=== PATIENT | female | born 1980 | race Caucasian/White ===

== ENCOUNTER 2017-12-09 19:06 | Emergency (ER) | payer MEDICAID ==
[2017-12-09 19:13] VITALS: BP 154/101
[2017-12-09] MEDS ORDERED: DEXAMETHASONE SOD PHOS INJ 10 MG/1 ML VIAL IM ONE (20:59)
[2017-12-09] MEDS ORDERED: DIPHENHYDRAMINE HCL 50 MG/ML VIAL IM ONE (20:59)
[2017-12-09] MEDS ORDERED: FAMOTIDINE 20 MG TABLET PO ONE (20:59)
--- NOTE | 2017-12-09 20:59 | ER Document Report ---
HPI - HPI Pain Level: 3 Notes: Patient is a 37-year-old female with a history of chronic migraines who presents to the ED complaining of left upper lip swelling about 3 hours ago while she was at work without known cause. She states that she has had some ' tingling' to the lip. Patient states that she started to have 1 of her typical headaches so she took a BC powder and about 20 minutes after that noticed the lip started to swell. Patient states that her headache has since improved and the swelling has improved as well, but she wanted to get checked out as precautionary. Patient states that she does have a history of hypertension as well, but has not been taking her medications over the last 6 months. She is on a combination medication with hydrochlorthiazide, but cannot remember what the other medicine is. Again, she has not taken this medicine in 6 months. She denies any drug allergies. Denies any new foods, travel, or other medicines. Patient states that she is otherwise eating and drinking without any difficulties. She is urinating normally and having normal bowel movements. Denies any fever, head injury, neck pain, drooling, hoarseness, swelling of tongue/throat, URI, sore throat, chest pain, palpitations, syncope, cough, shortness of breath, wheeze, dyspnea, abdominal pain, nausea/vomiting/diarrhea, urinary retention, dysuria, hematuria, muscle paralysis/weakness, or rash. - ROS Systems Reviewed and Negative: Yes All other systems reviewed and negative Past Medical History - Social History Smoking Status: Unknown if Ever Smoked Family History: Reviewed & Not Pertinent Vertical Provider Document - CONSTITUTIONAL Agree With Documented VS: Yes Notes: PHYSICAL EXAMINATION: GENERAL: Well-appearing, well-nourished and in no acute distress. A&Ox4. Answers questions appropriately. HEAD: Atraumatic, normocephalic. Non-tender. EYES: Pupils equal round and reactive to light, extraocular movements intact, sclera anicteric, conjunctiva are normal. No nystagmus. vis kaufman intact. ENT: EAC clear b/l. TM's intact b/l without erythema, fluid, or perforation. Nares patent and without discharge. oropharynx clear without exudates. No tonsilar hypertrophy or erythema. Moist mucous membranes. No sinus tenderness. Left upper lip has minimal swelling noted when compared to the the rt side and lower lip. No angioedema of the tongue/throat. no airway compromise. Non-tender to palp. No erythema or lesion/ulceration noted. NECK: Normal range of motion, supple without lymphadenopathy. No rigidity/ meningismus. No midline tenderness. LUNGS: Breath sounds clear to auscultation bilaterally and equal. No wheezes rales or rhonchi. HEART: Regular rate and rhythm without murmurs, rubs, gallops. ABDOMEN: Soft, nontender, nondistended abdomen. No guarding, no rebound. Normal bowel sounds present. No CVA tenderness bilaterally. Musculoskeletal: Ext b/l: FROM to passive/active. Strength 5+/5. No deficits noted. No bony tenderness of extremities. Extremities: No cyanosis, clubbing, or edema b/l. Peripheral pulses 2+. Capillary refill less than 2 seconds. NEUROLOGICAL: NIH 0. GCS 15. Cranial nerves grossly intact. Normal speech, normal gait. Normal sensory, motor exams. Reflexes 2+ b/l. CAIO's negative. Pronator drift negative. Heel/ybarra, finger/nose wnl. PSYCH: Normal mood, normal affect. SKIN: Warm, Dry, normal turgor, no rashes or lesions noted. - INFECTION CONTROL TRAVEL OUTSIDE OF THE [place] IN LAST 30 DAYS: No Course - Re-evaluation Re-evalutation: 12/09/17 22:05 Patient is an afebrile, well-hydrated, 37-year-old female who presents to the ED with a resolved headache and very minimal left upper lip swelling, unspecified. Vitals are acceptable without any significant tachycardia, tachypnea, or hypoxia. PE is otherwise unremarkable for any focal neurological deficits. Patient has had improvements over the last 3 hours since onset without medications. I did, however, give her Decadron, Pepcid, and Benadryl. Patient states that she is feeling better and would like to go home. No labs or imaging warranted at this time based on H&P. Low suspicion for any meningitis, sepsis, peritonsillar/pharyngeal abscess, airway compromise, Anjum' s, severe angioedema, or other emergent systemic condition at this time. Patient is aware this condition can change from initial presentation and she needs to monitor symptoms closely. Conservative measures otherwise for symptoms. Recheck with your PCM in 2-3 days. Return to the ED with any worsening/concerning symptoms otherwise as reviewed in discharge. Patient is in agreement. - Vital Signs Vital signs: Temp Pulse Resp BP Pulse Ox 98.2 F 69 16 154/101 H 100 12/09/17 19:11 12/09/17 19:11 12/09/17 19:11 12/09/17 19:11 12/09/17 19:11 Discharge - Discharge Clinical Impression: Swollen upper lip Headache Qualifiers: Headache type: unspecified Headache chronicity pattern: acute headache Intractability: not intractable Qualified Code(s): R51 - Headache Condition: Stable Disposition: HOME, SELF-CARE Instructions: Headache ([facility]) Additional Instructions: Rest, Ice Tylenol/ibuprofen as needed Healthy diet Monitor for any acute changes in her symptoms Monitor blood pressure closely and check with your primary care doctor before starting due to your upper lip swelling. F/u with your PCP in 2-3 days for a recheck Consider consult(s) with Orthopedics/physical therapy for ongoing/worsening symptoms Return to the ED with any worsening symptoms and/or development of fever, headache, changes in behavior/mentation/vision/speech, drooling, hoarseness, trouble swallowing, stridor, chest pain, palpitations, syncope, shortness of breath, trouble breathing, abdominal pain, n/v/d, blood in stool/urine, loss of control of bowel/bladder, urinary retention, muscle weakness/paralysis, saddle anesthesia, numbness/tingling, or other worsening symptoms that are concerning to you. Forms: Elevated Blood Pressure Referrals: [facility] [Provider Group] - Follow up as needed [facility] [Provider Group] - Follow up as needed
== END 2017-12-09 22:10 | disposition home or self-care (01) ==
LOC: ER 19:06
DX: R51 Headache (principal); R22.0 Localized swelling, mass and lump, head
CPT/HCPCS: 99283; 96372; J3490; J1200; J1100

== ENCOUNTER 2018-04-29 08:48 | Emergency (ER) | payer MEDICAID ==
--- NOTE | 2018-04-29 09:48 | RADIOLOGY REPORT (SQ) ---
EXAM DESCRIPTION: CHEST SINGLE VIEW COMPLETED DATE/TIME: 04/29/2018 9:40 am REASON FOR STUDY: chest pain COMPARISON: None. EXAM PARAMETERS: NUMBER OF VIEWS: One view. TECHNIQUE: Single frontal radiographic view of the chest acquired. RADIATION DOSE: NA LIMITATIONS: None. FINDINGS: LUNGS AND PLEURA: No opacities, masses or pneumothorax. No pleural effusion. MEDIASTINUM AND HILAR STRUCTURES: No masses. Contour normal. HEART AND VASCULAR STRUCTURES: Moderate cardiomegaly BONES: No acute findings. HARDWARE: None in the chest. OTHER: No other significant finding. IMPRESSION: Moderate cardiomegaly. No acute infiltrates TECHNICAL DOCUMENTATION: JOB ID: [id number] [employer]- All Rights Reserved Reading location - IP/workstation name: [email or web address]
--- NOTE | 2018-04-29 10:03 | ER Document Report ---
ED General - General Chief Complaint: Chest Pain Stated Complaint: CHEST PAIN Time Seen by Provider: 04/29/18 09:28 TRAVEL OUTSIDE OF THE [place] IN LAST 30 DAYS: No - HPI Notes: Patient is a 38-year-old female with history of hypertension and diabetes that presents to the emergency department for chief complaint of chest pain. Patient reports of pain over her left chest that began last night. It has been intermittent since onset. She states that when she woke up this morning it was not present but it started to begin while she was getting ready for work. She describes it as a squeezing aching sensation with radiation down her left arm. She does have some dyspnea with exertion and shortness of breath when the pain occurs. She denies any history of cardiac disease. She is never had a stress t est done. There is no family history of DVT/PE. She has not had any recent surgery, travel, immobilizations or estrogen use. She denies any palpitations, lightheadedness, cough, diaphoresis nausea and vomiting. She did take 1 baby aspirin which gave her some relief prior to arrival. Past Medical History: Diabetes, hypertension Past Surgical History: Social History: Denies tobacco and drug use. Occasional alcohol use Family History: Reviewed and noncontributory for presenting illness Allergies: Reviewed, see documented allergy list. REVIEW OF SYSTEMS: CONSTITUTIONAL : No fever No chills No diaphoresis No recent illness EENT: No vision changes No congestion No sore throat CARDIOVASCULAR: chest pain No palpitations RESPIRATORY: shortness of breath No cough difficulty breathing GASTROINTESTINAL: No abdominal pain No nausea No vomiting No diarrhea GENITOURINARY: No dysuria No hematuria No difficulty urinating MUSCULOSKELETAL: No back pain No leg pain No arm pain SKIN: No rashes No lesions LYMPHATIC: No swollen, enlarged glands. NEUROLOGICAL: No lightheadedness No headache No weakness No paresthesias PSYCHIATRIC: No anxiety No depression PHYSICAL EXAMINATION: Vital signs reviewed, nursing noted reviewed. GENERAL: Well-appearing, well-nourished and in no acute distress. HEAD: Atraumatic, normocephalic. EYES: Eyes appear normal, extraocular movements intact, sclera anicteric, conjunctiva are normal. ENT: nares patent, oropharynx clear without exudates. Moist mucous membranes. NECK: Normal range of motion, supple without lymphadenopathy LUNGS: Breath sounds clear to auscultation bilaterally and equal. No wheezes rales or rhonchi. HEART: Regular rate and rhythm without murmurs, +2/4 bilateral radial pulses ABDOMEN: Soft, nontender, normoactive bowel sounds. No rebound, guarding, or rigidity. No masses appreciated. EXTREMITIES: Nontender, good range of motion, no pitting or edema. NEUROLOGICAL: No focal neurological deficits. Moves all extremities spontaneously Motor and sensory grossly intact on exam. PSYCH: Normal mood, normal affect. SKIN: Warm, Dry, normal turgor, no rashes or lesions noted on exposed skin - Related Data Allergies/Adverse Reactions: No Known Allergies Allergy (Unverified 12/09/17 19:07) Past Medical History - Social History Smoking Status: Never Smoker Chew tobacco use (# tins/day): No Frequency of alcohol use: Occasional Drug Abuse: None Family History: Reviewed & Not Pertinent Patient has suicidal ideation: No Patient has homicidal ideation: No - Past Medical History Cardiac Medical History: Reports: Hx Hypertension Renal/ Medical History: Denies: Hx Peritoneal Dialysis GI Medical History: Reports: Hx Gastroesophageal Reflux Disease Past Surgical History: Reports: Hx Section Physical Exam - Vital signs Vitals: Temp Pulse Resp BP Pulse Ox 98.5 F 72 20 144/99 H 97 04/29/18 08:57 04/29/18 08:57 04/29/18 08:57 04/29/18 08:57 04/29/18 08:57 Course - Re-evaluation Re-evalutation: 04/29/18 10:02 Vitals reviewed. Nursing notes reviewed. Patient was given aspirin for her chest pain. Her EKG shows a probable left atrial abnormality and chest x-ray shows cardiomegaly. Neither of these findings are something that she has knowledge of. I have no comparison EKG. Lab work will be ordered to further investigate patient's chest pain complaint. 04/29/18 13:29 Patient has remained stable while in the emergency room. She did have some symptomatic relief of her chest discomfort. Her troponin x2 is negative. She is low risk for major adverse cardiac event given her heart score of 2. Her d-d saurav was elevated however there is no pulmonary embolism on CT. CT of her chest also shows no acute cardiopulmonary process. Patient will be referred to primary care for follow-up. She is stable at time of discharge. She will return for new or worsening symptoms. Laboratory 04/29/18 04/29/18 04/29/18 09:27 09:27 09:27 WBC 12.7 H RBC 4.29 Hgb 12.3 Hct 37.7 MCV 88 MCH 28.8 MCHC 32.8 RDW 13.2 Plt Count 299 Seg Neutrophils % 68.2 Lymphocytes % 23.2 Monocytes % 6.1 Eosinophils % 2.2 Basophils % 0.3 Absolute Neutrophils 8.7 H Absolute Lymphocytes 2.9 Absolute Monocytes 0.8 Absolute Eosinophils 0.3 Absolute Basophils 0.0 D-Dimer 0.94 H Sodium 138.9 Potassium 4.0 Chloride 103 Carbon Dioxide 29 Anion Gap 7 BUN 13 Creatinine 0.83 Est GFR ( Amer) > 60 Est GFR (Non-Af Amer) > 60 Glucose 97 Calcium 9.0 Troponin I NT-Pro-B Natriuret Pep 04/29/18 04/29/18 09:27 12:34 WBC RBC Hgb Hct MCV MCH MCHC RDW Plt Count Seg Neutrophils % Lymphocytes % Monocytes % Eosinophils % Basophils % Absolute Neutrophils Absolute Lymphocytes Absolute Monocytes Absolute Eosinophils Absolute Basophils D-Dimer Sodium Potassium Chloride Carbon Dioxide Anion Gap BUN Creatinine Est GFR ( Amer) Est GFR (Non-Af Amer) Glucose Calcium Troponin I < 0.012 < 0.012 NT-Pro-B Natriuret Pep 31 Chest X-Ray 04/29/18 09:28 IMPRESSION: Moderate cardiomegaly. No acute infiltrates Chest/Abdomen CTA 04/29/18 10:30 IMPRESSION: Negative examination for pulmonary embolism. - Vital Signs Vital signs: Temp Pulse Resp BP Pulse Ox 98.5 F 72 14 151/100 H 97 04/29/18 08:57 04/29/18 08:57 04/29/18 13:01 04/29/18 13:01 04/29/18 13:01 - Laboratory Result Diagrams: 04/29/18 09:27 04/29/18 09:27 Laboratory results interpreted by me: 04/29/18 04/29/18 09:27 09:27 WBC 12.7 H Absolute Neutrophils 8.7 H D-Dimer 0.94 H - EKG Interpretation by Me Additional EKG results interpreted by me: 04/29/18 10:03 Interpreted by myself [id number]: Normal sinus rhythm, rate 75, normal axis, left atrial abnormality, no STEMI Discharge - Discharge Clinical Impression: Cardiomegaly Chest pain Qualifiers: Chest pain type: unspecified Qualified Code(s): R07.9 - Chest pain, unspecified Condition: Stable Disposition: HOME, SELF-CARE Instructions: Chest Pain of Unclear Cause ([facility]) Additional Instructions: Please return to the emergency department if you have any worsening, or concern of your symptoms. Please return to the emergency department if you develop chest pain, difficulty breathing, severe abdominal pain, or ongoing vomiting. Please follow-up with your primary care physician in 2-3 days and any other recommended physicians. If prescribed, take all medications as directed. If you have any questions or concerns do not hesitate to return the emergency department for evaluation. Referrals: [facility] [Provider Group] - Follow up in 3-5 days
[2018-04-29 10:15] LABS: ABSOLUTE EOSINOPHILS # (AUTO) 0.3 10^3/uL (0.0-0.6); ABSOLUTE LYMPHOCYTES (AUTO) 2.9 10^3/uL (0.5-4.7); ABSOLUTE MONOCYTES (AUTO) 0.8 10^3/uL (0.1-1.4); ABSOLUTE NEUT (AUTO) 8.7 10^3/uL (1.7-8.2); ANION GAP 7 (5-19); BASOPHILS % (AUTO) 0.3 % (0-2); BLOOD UREA NITROGEN 13 mg/dL (7-20); CARBON DIOXIDE 29 mmol/L (22-30); CHLORIDE 103 mmol/L (98-107); EOSINOPHILS % (AUTO) 2.2 % (0-6); GLUCOSE 97 mg/dL (75-110); HEMATOCRIT 37.7 % (36.0-47.0); HEMOGLOBIN 12.3 g/dL (12.0-15.5); LYMPHOCYTES % (AUTO) 23.2 % (13-45); MEAN CORPUSCULAR HEMOGLOBIN 28.8 pg (27.0-33.4); MEAN CORPUSCULAR HGB CONC 32.8 g/dL (32.0-36.0); MEAN CORPUSCULAR VOLUME 88 fl (80-97); MONOCYTES % (AUTO) 6.1 % (3-13); PLATELET COUNT 299 10^3/uL (150-450); RED BLOOD COUNT 4.29 10^6/uL (3.72-5.28); RED CELL DISTRIBUTION WIDTH 13.2 % (11.5-14.0); SEGMENTED NEUTROPHILS % (AUTO) 68.2 % (42-78); SODIUM 138.9 mmol/L (137-145); TOTAL CELLS COUNTED % (AUTO) 100 %; WHITE BLOOD COUNT 12.7 10^3/uL (4.0-10.5)
[2018-04-29 10:27] LABS: NT PRO BNP 31 pg/mL (<125)
[2018-04-29 10:28] LABS: TROPONIN I < 0.012 ng/mL
--- NOTE | 2018-04-29 11:14 | RADIOLOGY REPORT (SQ) ---
EXAM DESCRIPTION: CTA CHEST COMPLETED DATE/TIME: 04/29/2018 10:54 am REASON FOR STUDY: PE study COMPARISON: 04/29/2018 TECHNIQUE: CT scan of the chest performed using helical scanning technique with dynamic intravenous contrast injection. Images reviewed with lung, soft tissue and bone windows. Reconstructed coronal and sagittal MPR images reviewed. Additional 3 dimensional post-processing performed to develop Maximal Intensity Projection images (WA P). All images stored on PACS. All CT scanners at this facility use dose modulation, iterative reconstruction, and/or weight based d osing when appropriate to reduce radiation dose to as low as reasonably achievable (ALARA). [facility]: Dose Right [facility]: CareDose [facility]: Dose Right [facility]: Teradose 4D [facility]: [email or web address] CONTRAST TYPE AND DOSE: contrast/concentration: Isovue 350.00 mg/ml; Total Contrast Delivered: 90.0 ml; Total Saline Delivered: 69.0 ml Contrast bolus optimized for the pulmonary arteries. Not diagnostic for the aorta. RENAL FUNCTION: None required. The patient is less than 50 years old. RADIATION DOSE: CT Rad equipment meets quality standard of care and radiation dose reduction techniq ues were employed. CTDIvol: 24.8 - 33.4 mGy. DLP: 1166 mGy-cm. . LIMITATIONS: None. FINDINGS: LUNGS AND PLEURA: No masses, infiltrates, or pneumothorax. Left basilar scarring or atele ctasis. No pleural effusions or pleural calcifications. AORTA AND GREAT VESSELS: No aneurysm. Contrast bolus not optimized for the aorta. HEART: No pericardial effusion. No significant coronary artery calcifications. PULMONARY ARTERIES: No emboli visualized in the main pulmonary arteries or the segmental branches. HILAR AND MEDIASTINAL STRUCTURES: No identified masses or abnormal nodes. HARDWARE: None in the chest. UPPER ABDOMEN: No significant findings. Limited exam. THYROID AND OTHER SOFT TISSUES: No masses. No adenopathy. BONES: No acute or significant finding. 3D MIPS: Confirm above findings. OTHER: No other significant finding. IMPRESSION: Negative examination for pulmonary embolism. COMMENT: Quality ID # [id number]: Final reports with documentation of one or more dose reduction techniques (e.g., Automated exposure control, adjustment of the mA and/or kV according to patient size, use of iterative reconstruction technique) TECHNICAL DOCUMENTATION: JOB ID: [id number] [employer]- All Rights Reserved Reading location - IP/workstation name: [email or web address]
[2018-04-29 13:05] VITALS: BP 151/100
--- NOTE | 2018-04-29 21:12 | EKG REPORT ---
SEVERITY:- ABNORMAL ECG - SINUS RHYTHM PROBABLE LEFT ATRIAL ABNORMALITY LEFT VENTRICULAR HYPERTROPHY : Confirmed by: Shereen Cooper MD 29-Apr-2018 21:11:04
== END 2018-04-29 13:56 | disposition home or self-care (01) ==
LOC: ER 08:48
DX: I11.9 Hypertensive heart disease without heart failure (principal); R07.9 Chest pain, unspecified; E11.9 Type 2 diabetes mellitus without complications; R06.02 Shortness of breath
CPT/HCPCS: 36415; 71045; 71275; 80048; 83880; 84484; 85025; 85379; 93005; 93010; 99285